=== PATIENT | male | born 1995 | race Hispanic/Latino ===

== ENCOUNTER 2017-02-17 22:41 | Emergency (ER) | payer OTHER ==
[~2017-02-17] VITALS: Ht 180.3 cm; Wt 81.6 kg
[~2017-02-17 22:41] MED LIST: BENZTROPINE ME0.5 M1 PO; GABAPENTIN300 M2 PO; RISPERDAL1 M1 PO; SEROQUEL25 M1 PO
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
[2017-02-18 00:30] LABS: ABSOLUTE BASOPHIL COUNT 0 /CUMM (0.0-0.2); ABSOLUTE EOSINOPHIL COUNT 0 /CUMM (0.0-0.7); ABSOLUTE GRANULOCYTE CT 6.7 /CUMM (1.4-6.5); ABSOLUTE LYMPH COUNT 2.3 /CUMM (1.2-3.4); ABSOLUTE MONOCYTE COUNT 0.8 /CUMM (0.10-0.60); BASOPHIL % 0.3 % (0.0-2.0); EOSINOPHIL % 0.2 % (0-5); GRANULOCYTE % 68.4 % (42.2-75.2); HEMATOCRIT 40.9 % (42-52); MEAN CORPUSCULAR HGB 28.6 PG (27.0-31.0); MEAN CORPUSCULAR HGB CONC 33.9 G/DL (33.0-37.0); MEAN CORPUSCULAR VOLUME 84.5 FL (80.0-94.0); MEAN PLATELET VOLUME 7.2 FL (7.4-10.4); PLATELET COUNT 251 /CUMM (130-400); RBC DISTRIBUTION WIDTH 12.5 % (11.5-14.5); RED BLOOD CELL CT 4.84 /CUMM (4.70-6.10); WHITE BLOOD CELL COUNT 9.7 /CUMM (4.8-10.8)
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
[2017-02-18 15:56] VITALS: BP 106/55
== END 2017-02-18 16:28 | disposition short-term general hospital (02) ==
LOC: ERH 22:41
PROVIDERS: Pediatrics
DX: F10.129 Alcohol abuse with intoxication, unspecified (principal); F32.9 Major depressive disorder, single episode, unspecified
CPT/HCPCS: 80307; 93005; 93010; 96372; G0480; J1200; J1630